=== PATIENT | male | born 1940 | race Caucasian/White ===

== ENCOUNTER 2019-12-22 02:26 | Emergency (ER) | payer BC, MEDICARE ==
[~2019-12-22] VITALS: Ht 172.7 cm; Wt 72.0 kg
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
--- NOTE | 2019-12-22 03:43 | EKG ---
[address] [address] Test Date: 2019-12-22 Test Time: 02:57:35 Pat Name: MISA DC Department: Room: Gender: M Internet Sales Director: : 1940 Requested By: ELLE ORTEGA Order Number: [id number] Reading MD: Hong Alarcon Measurements Intervals [place] Rate: 97 P: -35 IA: 150 QRS: -41 QRSD: 86 T: 24 QT: 332 QTc: 426 Interpretive Statements SINUS RHYTHM ABNORMAL LEFT AXIS DEVIATION LEFT ANTERIOR FASCICULAR BLOCK ABNORMAL ECG Electronically Signed On 12-23-2019 20:13:33 CDT by Hong Alarcon
[2019-12-22] MEDS ORDERED: IV RINGERS SOLUTION,LACTATED 1,000 ML IV SCH (04:00)
[2019-12-22] MEDS ORDERED: OXYC-325 PO (04:23)
[2019-12-22] MEDS ORDERED: CYCL5TAB PO (04:23)
[2019-12-22] MEDS ORDERED: oxyCODONE/APAP 5/325 1 TAB TABLET PO ONE (04:30)
[2019-12-22] MEDS ORDERED: CYCLOBENZAPRINE 10 MG TABLET. PO ONE (04:30)
[2019-12-22] MEDS ORDERED: BACITRACIN ZINC TOPICAL OINT PACKET. TP ONE (05:00)
[2019-12-22 05:13] LABS: BASO % 0 % (0-3); EOS % 0 % (0-3); HEMATOCRIT 39.8 % (39.0-53.0); HEMOGLOBIN 13.3 g/dL (13.0-17.5); LYMPH # 1.1 x10^3/uL (1.0-4.8); LYMPH % 13 % (24-48); MEAN CORPUSCULAR HEMOGLOBIN 32 pg (25-35); MEAN CORPUSCULAR HGB CONC 33 g/dL (31-37); MEAN CORPUSCULAR VOLUME 95 fL (79-100); MONO # 0.7 x10^3/uL (0.0-1.1); MONO % 8 % (0-9); NEUT % 79 % (31-73); PLATELET COUNT 213 x10^3/uL (140-400); RED CELL DISTRIBUTION WIDTH 13.3 % (11.5-14.5); WHITE BLOOD COUNT 8.9 x10^3/uL (4.0-11.0)
--- NOTE | 2019-12-22 05:24 | RAD ---
AP chest x-ray HISTORY: Fall, chest pain. FINDINGS: Mild tortuosity of the thoracic aorta silhouette. Heart size normal. No pneumothorax, pulmonary opacities or pleural effusions. At the right upper lobe between the posterior fifth and sixth ribs there is a 12 x 3 mm linear density may represent focal atelectasis or scarring versus a nodule with a linear morphology. Bones are unremarkable. IMPRESSION: No acute cardiopulmonary process. 12 x 3 mm focal linear atelectasis/scar versus nodule of the right upper lobe. Consider short-term follow-up chest x-rays to document that this resolves versus further assessment with CT imaging. Left hip AP lateral x-rays 2 views HISTORY: Fall, left hip pain. FINDINGS: There is acute traumatic left femoral mid cervical neck fracture with mild distraction and angulation. No dislocation of the femoral head evident. Acetabulum intact. Trochanteric femur intact. There is mild lateral hip soft tissue edema. IMPRESSION: Acute traumatic mid cervical left femoral neck fracture. Electronically signed by: Justin Epstein MD (12/22/2019 5:21 AM) [id number]
[2019-12-22 05:26] LABS: GFR 81.4
[2019-12-22 05:27] LABS: CREATININE 0.9 mg/dL (0.7-1.3); POTASSIUM 4.5 mmol/L (3.5-5.1)
[2019-12-22 05:38] LABS: MAGNESIUM 2.2 mg/dL (1.8-2.4)
[2019-12-22 05:43] LABS: ALBUMIN 4.1 g/dL (3.4-5.0); DIRECT BILIRUBIN 0.2 mg/dL (0.0-0.2); TOTAL BILIRUBIN 0.8 mg/dL (0.2-1.0)
[2019-12-22 06:12] LABS: TOTAL PROTEIN 8.2 g/dL (6.4-8.2)
[2019-12-22 06:22] VITALS: BP 116/59
--- NOTE | 2019-12-22 06:58 | RAD ---
CT head without contrast. Maxillofacial CT without contrast. CT cervical spine without contrast. HISTORY: Fell and hit head and face with pain. CT head findings: Mild generalized brain atrophy. Cerebral periventricular white matter hypoattenuation presumably changes of chronic small vessel ischemic disease. No intracranial hemorrhage, mass, hydrocephalus or infarction. Orbits, mastoids and bones are unremarkable. IMPRESSION: No acute intracranial CT abnormality. CT cervical spine findings: No facial bone fracture. Maxilla intact. Mandible intact. Orbits intact. No orbital edema or hematoma. Paranasal sinuses are well-aerated. IMPRESSION: Facial bones intact. CT cervical spine findings: Craniocervical junction intact. Cervical vertebral body height and alignment intact. No fracture of the cervical spine. Multilevel cervical disc height loss, osteophytes and uncovertebral and facet spurs with spinal canal and neural foraminal stenoses. Lung apices and paraspinal tissues are unremarkable. IMPRESSION: No acute osseous injury of the cervical spine. Cervical disc disease. Exposure: One or more of the following individualized dose reduction techniques were utilized for this examination: 1. Automated exposure control 2. Adjustment of the mA and/or kV according to patient size 3. Use of iterative reconstruction technique Electronically signed by: Justin Epstein MD (12/22/2019 6:56 AM) [id number]
--- NOTE | 2019-12-22 07:05 | RAD ---
CT pelvis without contrast COMPARISON: Left pelvic x-rays December 22, 2019. HISTORY: Fell, left femoral neck fracture, left hip pain. FINDINGS: Bilateral L5 spondylolysis with grade one L5 anterolisthesis and mild posterior wedging. Lumbar disc disease and arthritic change with spinal canal and neural foraminal stenoses. Old healed left inferior pubic ramus fracture. Left femoral mid cervical neck fracture with mild angulation, there appears to be some bone lysis at a 2 cm region of the trabecular bone at the fracture although the margins of the fracture appears be somewhat well-defined, an underlying lytic lesion contributing of the fracture cannot be excluded. No fracture of the trochanteric femur or at the femoral head. The acetabulum is intact. Remainder of the pelvis is intact. There is mild soft tissue edema and stranding along the left iliopsoas muscle and anterior left hip at the iliopsoas muscle and tendon. IMPRESSION: Acute traumatic left femoral neck fracture. There is a 2 cm lytic focus of the trabecular bone of the femoral neck at the fracture which could be due to traumatic injury although an underlying lytic lesion contributing to a pathologic fracture is not excluded. Exposure: One or more of the following individualized dose reduction techniques were utilized for this examination: 1. Automated exposure control 2. Adjustment of the mA and/or kV according to patient size 3. Use of iterative reconstruction technique Electronically signed by: Justin Epstein MD (12/22/2019 7:02 AM) [id number]
== END 2019-12-22 08:09 | disposition short-term general hospital (02) ==
LOC: ER 02:26
DX: S72.002A Fracture of unspecified part of neck of left femur, initial encounter for closed fracture (principal); S00.83XA Contusion of other part of head, initial encounter; R91.1 Solitary pulmonary nodule; R74.8 Abnormal levels of other serum enzymes; R29.6 Repeated falls; Z88.6 Allergy status to analgesic agent; W18.39XA Other fall on same level, initial encounter; Y93.K1 Activity, walking an animal; Y92.89 Other specified places as the place of occurrence of the external cause; Y99.8 Other external cause status
CPT/HCPCS: 36415; 70450; 70486; 71045; 72125; 72192; 73502; 80048; 80076; 82550; 83690; 83735; 83880; 84443; 84484; 85025; 85610; 85730; 93005; 99285; J7120; 99284

== ENCOUNTER → 2020-01-07 | Outpatient (CLI) | payer BC ==
[2019-12-22 06:22] VITALS: BP 116/59
[~2020-01-07] MED LIST: CYCL5TAB PO; OXYC-325 PO
--- NOTE | 2020-01-07 12:40 | RAD ---
EXAM: HIP LEFT 2V WITH PELVIS. HISTORY: Left hip pain, are the plasty. COMPARISON: 12/22/2019. FINDINGS: There are interval changes of left hip bipolar hemiarthroplasty in expected alignment. The femoral component is cemented. There is a chronic fracture of the left inferior pubic ramus. The joint spaces and alignment of the right hip are maintained. There are moderate degenerative changes of the lower lumbar spine. IMPRESSION: 1. Left hip hemiarthroplasty in expected alignment. Electronically signed by: Ileana Gonzalez MD (01/07/2020 12:37 PM) [id number]
== END | disposition home or self-care (01) ==
LOC: RAD 11:11
PROVIDERS: ATTEND Physician Assistant
DX: Z09 Encounter for follow-up examination after completed treatment for conditions other than malignant neoplasm (principal); M25.552 Pain in left hip; M47.816 Spondylosis without myelopathy or radiculopathy, lumbar region
CPT/HCPCS: 73502

== ENCOUNTER → 2021-02-05 | Outpatient (CLI) | payer BC ==
--- NOTE | 2021-02-05 11:58 | RAD ---
EXAM: Bilateral knees, standing view; right knee, 2 views. HISTORY: Pain. COMPARISON: None. FINDINGS: A standing frontal view both knees and lateral and sunrise views of the right knee are obta ined. There is severe medial compartment joint space narrowing, subchondral sclerosis, spurring and b hannah remodeling involving the right knee. There is associated right genu varus. There is mild medial c ompartment joint space narrowing and spurring involving the left knee and mild lateral and patellofem oral compartment spurring involving the right knee. There is a moderate right knee effusion. IMPRESSION: 1. Severe right knee medial compartment predominant osteoarthritis of the right knee with remodeling of the medial compartment, genu varus and a moderate joint effusion. 2. Medial compartment predominant osteoarthritis of the left knee. Electronically signed by: Kindra Zapata MD (02/05/2021 11:56 AM) [id number]
--- NOTE | 2021-02-05 12:08 | RAD ---
EXAM: Frontal pelvis with two-view right hip. HISTORY: Right hip pain. COMPARISON: 01/07/2020. FINDINGS: A left hip hemiarthroplasty is partially visualized but in expected alignment. There is a c hronic yolk fracture of the left inferior pubic ramus. No acute fractures are seen. The joint spaces and alignment of the right hip are maintained. There are moderate to severe degenera tive changes of the lower lumbar spine. Stool throughout the colon is consistent with constipation. IMPRESSION: 1. No clear degenerative change at the right hip. 2. Left hip hemiarthroplasty in expected alignment. 3. Correlate for constipation. Electronically signed by: Ileana Gonzalez MD (02/05/2021 12:05 PM) [id number]
== END ==
LOC: RAD 11:36
PROVIDERS: ATTEND Physician Assistant
DX: M17.0 Bilateral primary osteoarthritis of knee (principal); M25.551 Pain in right hip; Z96.652 Presence of left artificial knee joint
CPT/HCPCS: 73501; 73560; 73565